=== PATIENT | female | born 1995 | race African-American/Black ===

== ENCOUNTER 2017-08-27 01:10 | Emergency (ER) | payer MEDICAID ==
[~2017-08-27] VITALS: Ht 167.6 cm; Wt 66.0 kg
[2017-08-27 05:35] VITALS: BP 99/56
== END 2017-08-27 05:35 | disposition home or self-care (01) ==
LOC: ER 01:10
DX: N83.202 Unspecified ovarian cyst, left side (principal); N83.201 Unspecified ovarian cyst, right side; F12.10 Cannabis abuse, uncomplicated; F17.200 Nicotine dependence, unspecified, uncomplicated
CPT/HCPCS: 76856; 81025; 87210; 99285; Z7610; 87491; 87591

== ENCOUNTER 2018-08-07 22:11 | Emergency (ER) | payer MEDICAID ==
[~2018-08-07] VITALS: Ht 167.6 cm; Wt 63.7 kg
[2018-08-07] MEDS ORDERED: METHYLPREDNISOLONE SOD SUCC 125 MG/2 ML VIAL IV ONE (23:45)
[2018-08-07] MEDS ORDERED: EPINEPHRINE 1:1000 1 MG/ML AMP INJ ONE (23:45)
[2018-08-07] MEDS ORDERED: DIPHENHYDRAMINE 50MG/ML VIAL IV ONE (23:45)
[2018-08-08 02:07] VITALS: BP 130/74
== END 2018-08-08 02:14 | disposition home or self-care (01) ==
LOC: ER 22:11
DX: T49.0X5A Adverse effect of local antifungal, anti-infective and anti-inflammatory drugs, initial encounter (principal); I51.9 Heart disease, unspecified; F17.200 Nicotine dependence, unspecified, uncomplicated; F12.10 Cannabis abuse, uncomplicated; Z98.890 Other specified postprocedural states; Z88.3 Allergy status to other anti-infective agents; Y92.89 Other specified places as the place of occurrence of the external cause
CPT/HCPCS: 81025; 96374; 96375; 99283; J1200; J2930; J3490

== ENCOUNTER 2018-10-14 13:11 | Emergency (ER) | payer MEDICAID ==
[~2018-10-14] VITALS: Ht 167.6 cm; Wt 66.1 kg
[2018-10-14 13:43] VITALS: BP 140/84
== END 2018-10-15 00:24 | disposition left against medical advice (07) ==
LOC: ER 13:11
DX: Z53.21 Procedure and treatment not carried out due to patient leaving prior to being seen by health care provider (principal); F17.200 Nicotine dependence, unspecified, uncomplicated; Z98.890 Other specified postprocedural states

== ENCOUNTER 2019-08-14 14:39 | Inpatient (IN) | payer MEDICAID ==
[~2019-08-14] VITALS: Ht 170.2 cm; Wt 74.8 kg
[2019-08-14] MEDS ORDERED: SODIUM CHLORIDE 0.9% 1,000 ML IV ONE (21:25)
[2019-08-14] MEDS ORDERED: ONDANSETRON HCL 4MG/2ML INJ IV STA (21:25)
[2019-08-14] MEDS ORDERED: MORPHINE SULFATE 4 MG/ML CPJ (NOT FOR IM USE) IV STA (21:25)
[2019-08-14] MEDS ORDERED: SODIUM CHLORIDE 0.9% 1000ML BAG (SEPSIS BOLUS) IV ONE (21:30)
[2019-08-14] MEDS ORDERED: PIPERACILLIN/TAZ 3.375G PREMIX 50 ML IV ONE (21:30)
[2019-08-14] MEDS ORDERED: VANCOMYCIN 1 G PREMIX 200 ML IV ONE (21:30)
[2019-08-14 21:57] LABS: BASOPHILS % 0.6 % (0.0-2.0); EOSINOPHILS % 0.7 % (0.0-5.0); HEMATOCRIT. 40.6 % (36.0-48.0); HEMOGLOBIN. 13.3 g/dL (12.0-16.0); LYMPHOCYTES % 20.2 % (20.0-50.0); MEAN CORPUSCULAR VOLUME 91.5 fL (81.0-99.0); MEAN PLATELET VOLUME 7.4 fl (7.4-10.4); MONOCYTES % 13.3 % (2.0-8.0); NEUTROPHILS % 65.2 % (40.0-76.0); PLATELET 288 x1000/uL (130-400); RED BLOOD CELL COUNT 4.43 mill/uL (4.2-5.4); RED CELL DISTRIBUTION WIDTH 12.9 % (11.6-14.6)
[2019-08-14 21:59] LABS: CHLORIDE 108 mEq/L (98-107)
[2019-08-14 22:04] LABS: HCG SCREEN NEGATIVE
[2019-08-15 00:50] VITALS: BP 128/73
[2019-08-15] MEDS ORDERED: MORPHINE SULFATE 2 MG/ML CPJ (NOT FOR IM USE) IV PRN (02:00)
[2019-08-15 04:00] VITALS: BP 116/72
[2019-08-15] MEDS: PIPERACILLIN/TAZOBACTAM 3.375 G in DEXT 5% WATER 100 ML IV SCH ×3 (04:20→20:44)
[2019-08-15] MEDS ORDERED: PIPERACILLIN/TAZOBACTAM 3.375 G/VIAL IV SCH (06:00)
[2019-08-15 07:37] VITALS: BP 120/66
[2019-08-15] MEDS ORDERED: HYDROCODONE/ACETAMINOPHEN 5/325MG TABLET PO PRN (10:00)
[2019-08-15] MEDS: VANCOMYCIN 1 G PREMIX 200 ML IV SCH ×2 (11:20→18:49)
[2019-08-15] MEDS: ONDANSETRON HCL 4MG/2ML INJ IV PRN (11:31)
[2019-08-15 11:41] VITALS: BP 130/76
[2019-08-15 15:45] VITALS: BP 132/88
[2019-08-15] MEDS ORDERED: ACETAMINOPHEN 325MG TABLET PO PRN (19:30)
[2019-08-15 20:00] VITALS: BP 120/76
[2019-08-15 23:57] LABS: *AMPHETAMINES SCREEN URINE NEGATIVE (NEGATIVE); *BARBITURATES SCREEN URINE NEGATIVE (NEGATIVE); *BENZODIAZEPINES SCREEN URINE NEGATIVE (NEGATIVE); *COCAINE SCREEN URINE NEGATIVE (NEGATIVE)
[2019-08-15 23:58] LABS: METHADONE URINE SCREEN NEGATIVE (NEGATIVE); PHENCYCLIDINE URINE SCREEN NEGATIVE (NEGATIVE)
[2019-08-16] VITALS: BP 117/67
[2019-08-16 00:13] LABS: OPIATES URINE SCREEN PRESUMTIVE POSITIVE (NEGATIVE)
[2019-08-16 00:14] LABS: CANNABINOID URINE SCREEN PRESUMTIVE POSITIVE (NEGATIVE)
[2019-08-16] MEDS: VANCOMYCIN 1 G PREMIX 200 ML IV SCH ×3 (02:46→23:56)
[2019-08-16 04:00] VITALS: BP 133/80
[2019-08-16] MEDS ORDERED: TETANUS AND DIPHTHERIA TOX/PF 0.5ML SYR (ADULT) IM ONE (04:30)
[2019-08-16] MEDS: PIPERACILLIN/TAZOBACTAM 3.375 G in DEXT 5% WATER 100 ML IV SCH ×3 (05:35→20:19)
[2019-08-16 07:51] LABS: CHLORIDE 108 mEq/L (98-107)
[2019-08-16 08:00] VITALS: BP 130/29
[2019-08-16 12:00] VITALS: BP 115/23
[2019-08-16 12:21] LABS: BASOPHILS % 0.3 % (0.0-2.0); EOSINOPHILS % 0.2 % (0.0-5.0); HEMATOCRIT. 42.4 % (36.0-48.0); HEMOGLOBIN. 14.2 g/dL (12.0-16.0); LYMPHOCYTES % 19.2 % (20.0-50.0); MEAN CORPUSCULAR HEMOGLOBIN 30.3 pg (28.0-32.0); MEAN CORPUSCULAR VOLUME 90.8 fL (81.0-99.0); MEAN PLATELET VOLUME 7.6 fl (7.4-10.4); MONOCYTES % 9.9 % (2.0-8.0); NEUTROPHILS % 70.4 % (40.0-76.0); PLATELET 325 x1000/uL (130-400); RED BLOOD CELL COUNT 4.67 mill/uL (4.2-5.4); RED CELL DISTRIBUTION WIDTH 12.9 % (11.6-14.6)
[2019-08-16 12:30] LABS: CHLORIDE 104 mEq/L (98-107)
[2019-08-16 16:00] VITALS: BP 136/84
[2019-08-16] MEDS ORDERED: KETOROLAC 30MG/ML VIAL IV PRN (17:30)
[2019-08-16] MEDS: NICOTINE 21MG PATCH TD SCH (20:19)
[2019-08-16] MEDS: ONDANSETRON HCL 4MG/2ML INJ IV PRN (20:22)
[2019-08-16 20:47] VITALS: BP 122/72
[2019-08-17] VITALS: BP 132/83
[2019-08-17 04:00] VITALS: BP 135/85
[2019-08-17] MEDS: PIPERACILLIN/TAZOBACTAM 3.375 G in DEXT 5% WATER 100 ML IV SCH ×2 (05:48→13:00)
[2019-08-17 08:00] VITALS: BP 126/68
[2019-08-17] MEDS: NICOTINE 21MG PATCH TD SCH (09:00)
[2019-08-17] MEDS: VANCOMYCIN 1 G PREMIX 200 ML IV SCH (10:54)
[2019-08-17] MEDS ORDERED: SULF1TAB48 MT (12:30)
[2019-08-17 16:08] VITALS: BP 110/70
== END 2019-08-17 16:35 | disposition home or self-care (01) | DRG 383 ==
LOC: ER 14:39 → 6WST 22:24 → EDBEDREQSVC 22:29 → EDBEDREQTM 22:29 → EDBEDREQ 22:29 → ENRESERV 23:28
PROVIDERS: ADMIT Internal Medicine; ATTEND Internal Medicine
DX: L03.116 Cellulitis of left lower limb (principal); E87.8 Other disorders of electrolyte and fluid balance, not elsewhere classified; L02.612 Cutaneous abscess of left foot; F12.90 Cannabis use, unspecified, uncomplicated; Z87.891 Personal history of nicotine dependence; T36.8X5A Adverse effect of other systemic antibiotics, initial encounter; Y92.89 Other specified places as the place of occurrence of the external cause; Z79.899 Other long term (current) drug therapy; L97.529 Non-pressure chronic ulcer of other part of left foot with unspecified severity; Z88.8 Allergy status to other drugs, medicaments and biological substances
CPT/HCPCS: 36415; 71045; 73630; 80048; 80053; 80202; 80305; 83605; 84484; 84703; 85025; 87070; 90714; 93005; 93306; 99285; J2270; J2405; J2543; J3370; J7030; J7040; J7060

== ENCOUNTER 2020-07-07 10:49 | Emergency (ER) | payer MEDICAID ==
[~2020-07-07] VITALS: Ht 170.2 cm; Wt 79.0 kg
[~2020-07-07 10:49] MED LIST: SULF1TAB48 MT
[2020-07-07 10:52] VITALS: BP 120/73
[2020-07-07 12:53] LABS: BASOPHILS % 0.3 % (0.0-2.0); EOSINOPHILS % 0.2 % (0.0-5.0); HEMATOCRIT. 37.1 % (36.0-48.0); HEMOGLOBIN. 12.5 g/dL (12.0-16.0); LYMPHOCYTES % 13.1 % (20.0-50.0); MEAN CORPUSCULAR HEMOGLOBIN 30.3 pg (28.0-32.0); MEAN PLATELET VOLUME 7.1 fl (7.4-10.4); MONOCYTES % 8.5 % (2.0-8.0); NEUTROPHILS % 77.9 % (40.0-76.0); PLATELET 285 x1000/uL (130-400); RED BLOOD CELL COUNT 4.12 mill/uL (4.2-5.4); RED CELL DISTRIBUTION WIDTH 13.3 % (11.6-14.6)
[2020-07-07 13:03] LABS: CHLORIDE 108 mEq/L (98-107)
== END 2020-07-07 14:40 | disposition home or self-care (01) ==
LOC: ER 10:49
DX: O26.892 Other specified pregnancy related conditions, second trimester (principal); Z3A.18 18 weeks gestation of pregnancy; K59.00 Constipation, unspecified
CPT/HCPCS: 36415; 76805; 80048; 85025; 86850; 86900; 93005; 99285

== ENCOUNTER 2024-07-19 08:54 | Emergency (ER) | payer MEDICAID ==
[~2024-07-19] VITALS: Ht 167.6 cm; Wt 70.0 kg
[2024-07-19 09:09] VITALS: O2SAT 100
[2024-07-19 09:26] LABS: CLARITY URINE CLEAR (CLEAR); COLOR URINE YELLOW (YELLOW); GLUCOSE URINE NEGATIVE (NEGATIVE); KETONES URINE NEGATIVE (NEGATIVE); LEUKOCYTE ESTERASE URINE TRACE (NEGATIVE); NITRITE URINE NEGATIVE (NEGATIVE); OCCULT BLOOD URINE NEGATIVE (NEGATIVE); PROTEIN URINE NEGATIVE (NEGATIVE); SPECIFIC GRAVITY URINE 1.017 (1.005-1.030); UROBILINOGEN URINE 0.2 E.U./dL (0.2-1.0)
[2024-07-19 10:58] LABS: SQUAMOUS EPITHELIAL CELL URINE 1+ /lpf (RARE/1+)
[2024-07-19 10:59] LABS: BACTERIA URINE 1+
[2024-07-19 11:00] LABS: RBC URINE NONE SEEN /hpf (0-2); WBC URINE 0-2 /hpf (0-2)
[2024-07-19 11:50] VITALS: BP 131/81; PULSE 65; RESP 18; TEMP 36.89184; O2SAT 100
== END 2024-07-19 11:53 | disposition home or self-care (01) ==
LOC: ER 09:09
DX: R19.7 Diarrhea, unspecified (principal); Z32.02 Encounter for pregnancy test, result negative
CPT/HCPCS: 81003; 81025; 99283; Z7610